=== PATIENT | male | born 1955 | race Caucasian/White ===

== ENCOUNTER 2023-04-30 13:34 | Outpatient (CLI) | payer MEDICARE, SELFPAY ==
[2023-04-30 16:47] LABS: Strep A DNA Probe* NOT DETECTED (Not Detectd)
[2023-04-30 17:00] LABS: PCR FLU A Negative PCR FLU A (Negative); PCR FLU B Negative PCR FLU B (Negative); SARS PCR* Negative SARS-CoV-2 (Negative)
== END 2023-04-30 13:35 | disposition home or self-care (01) ==
PROVIDERS: PCP Nurse Practitioner Family; Visit Provider Nurse Practitioner Family
DX: R68.83 Chills (without fever) (principal); Z20.818 Contact with and (suspected) exposure to other bacterial communicable diseases
CPT/HCPCS: 87631; 87651

== ENCOUNTER 2023-11-01 08:58 | Outpatient (CLI) | payer MEDICARE, SELFPAY | END 2023-11-01 08:59 | disposition home or self-care (01) | PROVIDERS: PCP Nurse Practitioner Family; Visit Provider Nurse Practitioner Family | DX: R03.0 Elevated blood-pressure reading, without diagnosis of hypertension (principal); Z12.5 Encounter for screening for malignant neoplasm of prostate; Z13.220 Encounter for screening for lipoid disorders; N40.1 Benign prostatic hyperplasia with lower urinary tract symptoms | CPT/HCPCS: 80053; 80061; 85025; G0103 ==

== ENCOUNTER 2023-11-05 12:31 | Outpatient (CLI) | payer MEDICARE, SELFPAY | END 2023-11-05 12:32 | disposition home or self-care (01) | LOC: WOUND 12:31 | PROVIDERS: PCP Nurse Practitioner Family; Visit Provider Nurse Practitioner Family | DX: S81.812A Laceration without foreign body, left lower leg, initial encounter (principal); W29.8XXA Contact with other powered hand tools and household machinery, initial encounter | CPT/HCPCS: 11042; G0463 ==

== ENCOUNTER 2023-11-19 11:34 | Outpatient (CLI) | payer MEDICARE, SELFPAY | END 2023-11-19 11:35 | disposition home or self-care (01) | LOC: WOUND 11:34 | PROVIDERS: PCP Nurse Practitioner Family; Visit Provider Nurse Practitioner Family | DX: S81.822A Laceration with foreign body, left lower leg, initial encounter (principal) | CPT/HCPCS: 11042 ==

== ENCOUNTER 2023-12-02 10:53 | Outpatient (CLI) | payer MEDICARE, SELFPAY | END 2023-12-02 10:54 | disposition home or self-care (01) | LOC: WOUND 10:53 | PROVIDERS: PCP Nurse Practitioner Family; Visit Provider Nurse Practitioner Family | DX: S81.822A Laceration with foreign body, left lower leg, initial encounter (principal); W29.8XXA Contact with other powered hand tools and household machinery, initial encounter | CPT/HCPCS: 11042 ==

== ENCOUNTER 2024-02-28 12:04 | Outpatient (CLI) | payer MEDICARE, SELFPAY ==
--- NOTE | 2024-02-28 13:08 | P.ANES_ITS ---
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
--- NOTE | 2024-02-28 13:08 | W.ANESCHARGE ---
Anesthesia Charges Start Date/Time Anesthesia Start Date: 02/28/24 Anesthesia Start Time: 12:48 Stop Date/Time Anesthesia Stop Date: 02/28/24 Anesthesia Stop Time: 13:08 Coding CPT Codes CPT Codes: RACHELLS LWR INTST NDSC NOS - [id number] ([id number]) P2 - PATIENT W/MILD SYST DISEASE, QZ - CUT FILER SVC W/O HAND MITER OPERATOR BY
== END 2024-02-28 12:05 | disposition home or self-care (01) ==
PROVIDERS: PCP Nurse Practitioner Family; Visit Provider Internal Medicine
DX: Z12.11 Encounter for screening for malignant neoplasm of colon (principal); D12.3 Benign neoplasm of transverse colon; D12.5 Benign neoplasm of sigmoid colon; K57.30 Diverticulosis of large intestine without perforation or abscess without bleeding
CPT/HCPCS: 00811; 45380; 45385; 88305; J2704

== ENCOUNTER 2025-02-06 11:05 | Outpatient (CLI) | payer MEDICARE, SELFPAY | END 2025-02-06 11:06 | disposition home or self-care (01) | LOC: NFLDREF 02-13 13:52 | PROVIDERS: PCP Nurse Practitioner Family; Referring Provider Nurse Practitioner Family; Visit Provider Nurse Practitioner Family | DX: N40.0 Benign prostatic hyperplasia without lower urinary tract symptoms (principal); Z13.0 Encounter for screening for diseases of the blood and blood-forming organs and certain disorders involving the immune mechanism; Z13.6 Encounter for screening for cardiovascular disorders; Z12.5 Encounter for screening for malignant neoplasm of prostate | CPT/HCPCS: 80053; 80061; 85025; G0103 ==